=== PATIENT | male | born 1955 ===

== ENCOUNTER 2018-11-28 08:35 | Day surgery (SDC) | payer OTHER ==
[~2018-11-28] VITALS: Ht 167.6 cm; Wt 65.6 kg
[~2018-11-28 08:35] MED LIST: Aspirin EC81 MG PO; LOSARTAN-HCTZ1 EACH PO; LOVA40 PO; Neurontin 300300 MG PO
--- NOTE | 2018-11-28 12:05 | NUR ---
11/28/18 1205 Jackelin Simon 2GM GIVEN BY DR LEIVA @1132 BUPIVICAINE 150MG INJ TO OPSITE BY DR WATERS @6158
--- NOTE | 2018-11-28 13:45 | NUR ---
"DAY SURGERY RN | DISCHARGE PATIENT DISCHARGE INSTRUCTIONS GIVEN. VSS. A/O. DENIES PAIN/NAUSEA. PT CAN AMBULATE WITHOUT DIFFICULTY. SITE C/D/I. NO ISSUES IN STEPDOWN. TOLERATING PO FLUIDS AND EATING CRACKERS. PATIENT'S RIDE IS ON THEIR WAY. PATIENT TAKEN IN WHEELCHAIR TO FRONT ENTRANCE IN WHEELCHAIR BY VOLUNTEER."
== END 2018-11-28 22:36 | disposition home or self-care (01) ==
LOC: ORSCMMR 08:35 → ORD 09:45 → ORSCMMR 09:45
PROVIDERS: Surgery
PROC: 0YU50JZ Supplement Right Inguinal Region with Synthetic Substitute, Open Approach (ICD-10-PCS; principal; 2018-11-28 09:45)
DX: K40.90 Unilateral inguinal hernia, without obstruction or gangrene, not specified as recurrent (principal); E78.5 Hyperlipidemia, unspecified; I10 Essential (primary) hypertension; Z79.899 Other long term (current) drug therapy; F17.210 Nicotine dependence, cigarettes, uncomplicated
CPT/HCPCS: C1781; J0690; J1100; J2250; J2370; J2405; J3010; J7120